=== PATIENT | male | born 1985 | race Two or more races ===

== ENCOUNTER 2017-03-03 12:30 | Emergency (ER) | payer OTHER ==
[2017-03-03 12:39] VITALS: BP 122/66
--- NOTE | 2017-03-03 13:37 | ER Document Report ---
HPI - HPI Patient complains to provider of: right pinky laceration Pain Level: 2 Context: Patient is a 31-year-old male who presents with a finger laceration. Patient states that happened about 11 PM last evening. States that he bend his pinky this morning it started bleeding. Otherwise he states his tetanus is up-to- date. Denies any range of motion problems or any decreased or altered sensation. - CARDIOVASCULAR Cardiovascular: DENIES: Chest pain - DERM Skin Color: Normal Past Medical History - Social History Smoking Status: Never Smoker Chew tobacco use (# tins/day): No Frequency of alcohol use: Occasional Drug Abuse: None Family History: Reviewed & Not Pertinent Renal/ Medical History: Denies: Hx Peritoneal Dialysis Surgical Hx: Negative - Immunizations Hx Diphtheria, Pertussis, Tetanus Vaccination: Yes Vertical Provider Document - CONSTITUTIONAL Agree With Documented VS: Yes Exam Limitations: No Limitations General Appearance: WD/WN, No Apparent Distress - INFECTION CONTROL TRAVEL OUTSIDE OF THE [place] IN LAST 30 DAYS: No - RESPIRATORY O2 Sat by Pulse Oximetry: 97 - CARDIOVASCULAR Pulses: Normal: Radial - Capillary refill less than 2 seconds in all upper extremity digits - MUSCULOSKELETAL/EXTREMETIES Musculoskeletal/Extremeties: MAEW, FROM, Non-Tender, No Edema. negative: Eccymosis Notes: No evidence of tendon injury - NEURO Level of Consciousness: Awake, Alert, Appropriate Motor/Sensory: No Motor Deficit, No Sensory Deficit. negative: Weak Motor Strength RUE - Equal metal dresser strength, Weak Motor Strength LUE - DERM Integumentary: Warm, Dry, No Rash, Laceration - 2 cm laceration superficial noted on the extensor surface of the left pinky not involving underlying muscle or tendon. Course - Re-evaluation Re-evalutation: 03/03/17 13:35 Patient is a 31-year-old male who presents with a laceration that is older than 8 hours. We will dressed with bacitracin and Kerlix and a finger splint to keep his finger straight to allow for wound edges to heal. Patient to be discharged on antibiotics to cover for infection given exposure time. Patient agrees with plan - Vital Signs Vital signs: Temp Pulse Resp BP Pulse Ox 98.3 F 59 L 14 122/66 97 03/03/17 12:38 03/03/17 12:38 03/03/17 12:38 03/03/17 12:38 03/03/17 12:38 Discharge - Discharge Clinical Impression: Laceration Condition: Good Disposition: HOME, SELF-CARE Instructions: Prophylactic Antibiotic ([facility]), Soap Cleansing ([facility]), Antibiotic Ointment Protection ([facility]), Non-Sutured Laceration ([facility]) Additional Instructions: Please do dressing changes at least twice a day. Please be sure to keep the laceration clean. Use bacitracin ointment for protection. Use splint until you are able to utilize her pinky is normal. Prescriptions: Cephalexin Monohydrate [Keflex 500 mg Capsule] 500 mg PO Q6H 5 Days capsule Referrals: YOANDY MILLER, [Primary Care Provider] - Follow up as needed
== END 2017-03-03 13:41 | disposition home or self-care (01) ==
LOC: ER 12:30
DX: S61.216A Laceration without foreign body of right little finger without damage to nail, initial encounter (principal); W45.8XXA Other foreign body or object entering through skin, initial encounter
CPT/HCPCS: 99283